=== PATIENT | female | born 1945 | race Caucasian/White ===

== ENCOUNTER 2016-11-06 09:09 | Day surgery (SDC) | payer OTHER, BC ==
[2016-11-05 15:18] VITALS: BMI 36.5
[2016-11-06] MEDS ORDERED: PROPOFOL 20 ML ONE ×5 (09:47)
[2016-11-06] MEDS ORDERED: LIDOCAINE HCL/PF 2% SDV 5ML VIAL ONE (09:47)
[2016-11-06 11:00] VITALS: TEMP 97.8
[2016-11-06 11:57] VITALS: BP 153/87; PULSE 64
--- NOTE | 2016-11-07 11:40 | PATH ---
Surgical Pathology Report Patient Name: [facility]. Rec. #: [id number] /Age/Gender: 1945 (Age: 71) / F Account: [id number] Location: U-ENDOSCOPY Taken: 11/06/2016 Received: 11/06/2016 Reported: 11/07/2016 Physicians: Renny Katz M.D. Specimen(s) Received A: BX ANTRUM B: POLYP TRANSVERSE COLON POLYP C: POLYP SIGMOID COLON Clinical History GERD, history of colon polyp Hiatal hernia 2-3 cm, erosive gastritis, multiple gastric ulcers, diverticulosis, colon polyps, grade 2 hemorrhoids Final Diagnosis A. STOMACH, ANTRUM, BIOPSY: GASTRIC ANTRAL AND FUNDIC MUCOSA WITH FOCAL MILD CHRONIC GASTRITIS. IMMUNOSTAIN FOR H. PYLORI IS NEGATIVE. B. COLON, TRANSVERSE, BIOPSY: TUBULAR ADENOMA. C. COLON, SIGMOID, BIOPSY: HYPERPLASTIC POLYP. Electronically Signed Fuad Plasencia M.D. Gross Description A. Received in formalin, labeled "biopsy antrum" are 2 grove, irregular portions of soft tissue measuring 0.3 and 0.5 cm. in greatest dimension. The specimens are submitted in toto in one cassette. B. Received in formalin, labeled "biopsy transverse colon polyp" is a grove, irregular portion of soft tissue measuring 0.3 cm. in greatest dimension. The specimen is submitted in toto in one cassette. C. Received in formalin, labeled "sigmoid colon polyp" is a grove, irregular portion of soft tissue measuring 0.2 cm. in greatest dimension. The specimen is submitted in toto in one cassette. 11/06/201611/06/2016
== END 2016-11-06 12:20 | disposition home or self-care (01) ==
LOC: JASU-ENDO 09:09
PROVIDERS: ATTEND Internal Medicine Gastroenterology
PROC: 0DBL8ZX Excision of Transverse Colon, Via Natural or Artificial Opening Endoscopic, Diagnostic (ICD-10-PCS; 2016-11-06)
PROC: 0DB68ZX Excision of Stomach, Via Natural or Artificial Opening Endoscopic, Diagnostic (ICD-10-PCS; 2016-11-06)
PROC: 0DBN8ZX Excision of Sigmoid Colon, Via Natural or Artificial Opening Endoscopic, Diagnostic (ICD-10-PCS; principal; 2016-11-06 10:00)
DX: Z12.11 Encounter for screening for malignant neoplasm of colon (principal); Z86.010 Personal history of colon polyps; K57.30 Diverticulosis of large intestine without perforation or abscess without bleeding; D12.5 Benign neoplasm of sigmoid colon; D12.3 Benign neoplasm of transverse colon; K44.9 Diaphragmatic hernia without obstruction or gangrene; K26.9 Duodenal ulcer, unspecified as acute or chronic, without hemorrhage or perforation; K64.8 Other hemorrhoids; K63.89 Other specified diseases of intestine; K29.00 Acute gastritis without bleeding
CPT/HCPCS: 36415; 82941; 88305-TC; 88342-TC